=== PATIENT | male | born 1990 | race Caucasian/White ===

== ENCOUNTER 2019-04-09 08:58 | Emergency (ER) | payer BC, MEDICAID, SELFPAY ==
[2019-04-09 08:59] VITALS: BP 127/72; PULSE 89; RESP 17; TEMP 36.7; O2SAT 99; BMI 27.2
--- NOTE | 2019-04-09 09:10 | ED.VIS.GEN ---
History of Present Illness Chief Complaint: Lower Extremity Injury Detail of Chief Complaint: Right ankle pain Informant: Patient Onset: Today Current Severity: Mild Maximum Severity: Mild Narrative: Patient presents with injury to right ankle. He states he rolled his right ankle while playing basketball several months ago. It was not completely healed when he stepped down off of a step this morning and rolled his ankle again. He has swelling of the lateral side of his ankle. He denies paresthesias. He does have a prior history of avulsion fracture of that ankle. No prior surgeries. - Past Medical History (1) Avulsion fracture of ankle Status: Resolved Past Medical History - Allergies and Home Meds Allergies/Adverse Reactions: Allergies No Known Allergies Allergy (Verified 04/09/19 08:58) Primary Care Physician: Kurt Barrios MD [Primary Care Provider] - Smoking Status: Never smoker Review of Systems General: Denies: Chills, Fever Eyes: Denies: Visual changes - bilaterally ENT: Denies: Bilateral ear pain Cardiovascular: Denies: Chest pain Respiratory: Denies: Dyspnea Gastrointestinal: Denies: Abdominal pain, Nausea, Vomiting, Diarrhea Genitourinary: Denies: Dysuria Musculoskeletal: Reports: Swelling, Extremity Pain. Denies: Neck pain, Back pain Skin: Denies: Rash Neurological: Denies: Headache Hematologic: Denies: Easy bruising Allergy: Denies: Uticaria Physical Exam Vital Signs/Narrative: Vital Signs Temp Pulse Resp BP Pulse Ox 04/09/19 08:59 98.1 F 89 17 127/72 H 99 Inital Vital Signs reviewed: Yes General: Well nourished, Well developed Head: Normocephalic ENT: Moist mucous membranes Neck: Supple Cardiovascular: Regular rate, Regular rhythm Respiratory: No distress, CTA bilaterally Abdomen: Soft, Nontender Extremities: Tenderness - Mild tenderness palpation of the lateral malleolus of the right ankle with mild edema. No tenderness over the foot itself. No tenderness of the proximal fibula or proximal fifth metatarsal. Skin: Normal color Neurological: Alert, Oriented x3, Normal Strength, Normal Sensation Psychological: Normal affect Diagnostic/Tx/Re-eval Impressions Ankle X-Ray 04/09/19 09:33 IMPRESSION: No plain film evident acute osseous abnormality. No significant soft tissue swelling. Anatomic alignment. Findings as above involving the bilateral malleoli most consistent with sequela of remote trauma. Electronically Signed: Nicko Hernandez MD at 9:58 EST , Service support , 04/09/19 09:33 Ankle min 3 Views [RAD] Stat - Medical Decision Making Patient declined anything for pain. Test results are discussed with him. He will be given a stirrup splint. He will be given orthopedics for number for follow-up if needed. ED Disposition - Plan for ED Patient: Disposition: Home or Assisted Living Diagnosis: Ankle sprain Instructions: Sprain, Ankle, with X-Ray Referrals: Kurt Barrios MD [Primary Care Provider] - Severo Maki MD [STAFF PHYSICIAN] - As Needed
--- NOTE | 2019-04-09 09:33 | RAD_ITS ---
STUDY: X-RAY - RIGHT ANKLE REASON FOR EXAM: Male, 29 years old. ROLLED ANKLE COUPLE WEEKS AGO, DID AGAIN TODAY TECHNIQUE: 3 view(s) of the ankle. COMPARISON: None. FINDINGS: There is no acute fracture lucency. No cortical step-off. Alignments appear anatomic. No significant soft tissue swelling. There is irregularity of the cortex of the mid and distal fibular tip as well as some overgrowth of the tip of the medial malleolus. These findings are most consistent with sequela of remote trauma. The ankle mortise is preserved and the talar dome appears unremarkable. RAD/Ankle min 3 Views IMPRESSION: No plain film evident acute osseous abnormality. No significant soft tissue swelling. Anatomic alignment. Findings as above involving the bilateral malleoli most consistent with sequela of remote trauma. Electronically Signed: Nicko Hernandez MD at 9:58 EST , Service support ,
[2019-04-09 10:38] VITALS: BP 141/73; PULSE 62; RESP 15; O2SAT 99
== END 2019-04-09 11:36 | disposition home or self-care (01) ==
PROVIDERS: Emergency Provider Emergency Medicine; Family Provider Family Medicine; PCP Family Medicine
DX: S93.401A Sprain of unspecified ligament of right ankle, initial encounter (principal); X50.1XXA Overexertion from prolonged static or awkward postures, initial encounter; Y93.67 Activity, basketball; Y92.9 Unspecified place or not applicable; Y99.9 Unspecified external cause status
CPT/HCPCS: 73610; 99283